=== PATIENT | male | born 2000 | race Caucasian/White ===

== ENCOUNTER 2020-02-08 10:02 | Emergency (ER) | payer SELFPAY ==
[~2020-02-08] VITALS: Ht 170.2 cm; Wt 68.0 kg
[2020-02-08 10:19] VITALS: Ht 170.2 cm; Wt 68.0 kg
[2020-02-08 11:18] LABS: BASOPHIL % 0.3 % (0-2); PLATELET COUNT 197 x10^3mcL (130-400); RED CELL DISTRIBUTION WIDTH 13.4 % (11.5-14.5)
[2020-02-08 11:26] LABS: CALCIUM 8.8 mg/dL (8.5-10.1); CARBON DIOXIDE 28.2 mmol/L (21-32); CHLORIDE SERUM 102 mmol/L (98-107); GFR1 > 60 mL/min; GLUCOSE SERUM 94 mg/dL (74-106); POTASSIUM SERUM 4.3 mmol/L (3.5-5.1); SODIUM SERUM 140 mmol/L (136-145)
[2020-02-08 11:31] LABS: ALKALINE PHOSPHATASE 78 U/L (46-116); ALT/SGPT 112 U/L (16-63); AST/SGOT 63 U/L (15-37); BILIRUBIN TOTAL 0.57 mg/dL (0.20-1.00); LIPASE 111 IU/L (73-393); TOTAL PROTEIN, SERUM 7.5 g/dL (6.4-8.2)
[2020-02-08 12:04] VITALS: BP 137/96
[2020-02-08 12:04] LABS: AMPHETAMINE QUAL UR NONE DETECTED (See below)
== END 2020-02-08 12:04 | disposition home or self-care (01) ==
LOC: ED 10:02
PROVIDERS: Specialist
DX: K29.70 Gastritis, unspecified, without bleeding (principal)
CPT/HCPCS: G0480; Q0092

== ENCOUNTER 2020-03-08 02:45 | Emergency (ER) | payer SELFPAY ==
[~2020-03-08] VITALS: Ht 177.8 cm; Wt 81.6 kg
[2020-03-08 03:16] VITALS: BP 137/87; Ht 177.8 cm; Wt 81.6 kg
[2020-03-08 03:39] LABS: BASOPHIL % 0.5 % (0-2); PLATELET COUNT 196 x10^3mcL (130-400); RED CELL DISTRIBUTION WIDTH 13.1 % (11.5-14.5)
[2020-03-08 03:58] LABS: CALCIUM 8.9 mg/dL (8.5-10.1); CARBON DIOXIDE 24.6 mmol/L (21-32); CHLORIDE SERUM 102 mmol/L (98-107); CREATININE SERUM 1.1 mg/dL (0.7-1.3); GFR1 > 60 mL/min; GLUCOSE SERUM 98 mg/dL (74-106); POTASSIUM SERUM 3.5 mmol/L (3.5-5.1); SODIUM SERUM 140 mmol/L (136-145)
[2020-03-08 04:02] LABS: ALBUMIN 4.2 g/dL (3.4-5.0); ALKALINE PHOSPHATASE 94 U/L (46-116); ALT/SGPT 73 U/L (16-63); AST/SGOT 38 U/L (15-37); BILIRUBIN TOTAL 0.39 mg/dL (0.20-1.00); TOTAL PROTEIN, SERUM 8.1 g/dL (6.4-8.2)
== END 2020-03-08 03:48 | disposition left against medical advice (07) ==
LOC: ED 02:45
PROVIDERS: Emergency Medicine
DX: R56.9 Unspecified convulsions (principal); F10.10 Alcohol abuse, uncomplicated
CPT/HCPCS: G0480